=== PATIENT | male | born 2000 | race Caucasian/White ===

== ENCOUNTER → 2021-08-28 16:09 | Outpatient (CLI) | payer OTHER, SELFPAY | PROVIDERS: Visit Provider Nurse Practitioner | DX: Z20.822 Contact with and (suspected) exposure to COVID-19 (principal) | CPT/HCPCS: C9803; U0003; U0005 ==

== ENCOUNTER → 2021-10-04 16:44 | Outpatient (CLI) | payer OTHER, SELFPAY | PROVIDERS: Visit Provider Nurse Practitioner | DX: Z20.822 Contact with and (suspected) exposure to COVID-19 (principal) | CPT/HCPCS: C9803; U0003; U0005 ==

== ENCOUNTER 2021-11-01 14:17 | Emergency (ER) | payer SELFPAY ==
--- NOTE | 2021-11-01 14:47 | XR_ITS ---
PROCEDURE INFORMATION: Exam: XR Chest Exam date and time: 11/01/2021 2:47 PM Age: 21 years old Clinical indication: Cough; Additional info: Cough, congestion TECHNIQUE: Imaging protocol: XR of the chest. Views: 2 views. COMPARISON: No relevant prior studies available. FINDINGS: Lungs: Central opacities with peribronchial cuffing, seen to advantage on the lateral chest radiograph suggest viral process versus reactive airways without convincing consolidation. Pleural spaces: Unremarkable. No pleural effusion. No pneumothorax. Heart/Mediastinum: Unremarkable. No cardiomegaly. Bones/joints: Unremarkable. IMPRESSION: Central opacities with peribronchial cuffing, seen to advantage on the lateral chest radiograph suggest viral process versus reactive airways without convincing consolidation.
[2021-11-01 15:39] VITALS: BP 153/93; PULSE 104; RESP 20; TEMP 37.3; O2SAT 98; BMI 27.6
[2021-11-01 15:50] LABS: Adenovirus,PCR Not Detected (NotDetected); Bordetella Pertussis Not Detected (NotDetected); Chlamydophila Pneumoniae, PCR Not Detected (NotDetected); Coronavirus 19, PCR Not Detected (NotDetected); Coronavirus 229E Not Detected (NotDetected); Coronavirus NL63 Not Detected (NotDetected); Coronavirus OC43 Not Detected (NotDetected); Coronovirus HKU1,PCR Not Detected (NotDetected); Influenza A, PCR Not Detected (NotDetected); Influenza AH1, 2009 Not Detected (NotDetected); Influenza AH1, PCR Not Detected (NotDetected); Influenza AH3,PCR Not Detected (NotDetected); Influenza B, PCR Not Detected (NotDetected); Mycoplasma Pneumoniae, PCR Not Detected (NotDetected); Parainfluenza 1, PCR Not Detected (NotDetected); Parainfluenza 2, PCR Not Detected (NotDetected); Parainfluenza 3, PCR Not Detected (NotDetected); Parainfluenza 4, PCR Not Detected (NotDetected); Respiratory Syncytial Virus Not Detected (NotDetected); Rhinovirus/Enterovirus Not Detected (NotDetected)
--- NOTE | 2021-11-01 16:04 | HMH.EDUTC ---
[facility] [place] Clinical Impression: Acute bronchitis Qualifiers: Bronchitis organism: unspecified organism Qualified Code(s): J20.9 - Acute bronchitis, unspecified Disposition: Home, Self-Care Condition on Discharge: Good Instructions: DI for Acute Bronchitis Additional Instructions: Drink plenty of fluids. Take tylenol or ibuprofen for pain or fever. Take one of these regularly for the next few days to help control your fever and symptoms. Take the medications as directed. Don't start the oral steroids (prednisone) until tomorrow, since you had the steroid shot here today. Follow up with your regular doctor. GO TO THE ER FOR ANY WORSENING SYMPTOMS The cough medication (promethazine dm) will make you drowsy, so don't drive or operate heavy machinery after taking it. Prescriptions: Promethazine/Dextromethorphan [Promethazine-Dm Syrup] 5 ml PO Q6HP PRN #240 ml PRN Reason: Cough Transmission Status: Received by [email or web address] Ondansetron [Zofran 4mg ODT] 4 mg PO Q8HP PRN #20 tab PRN Reason: Nausea Transmission Status: Received by [email or web address] Amoxicillin/Potassium Clav [Augmentin 875-125 Tablet] 1 tab PO Q12H 10 Days #20 tab Transmission Status: Received by [email or web address] predniSONE [Prednisone 20mg Tab] 20 mg PO BID 4 Days #8 tab Transmission Status: Received by [email or web address] Referrals: Provider,Referral, MD [Primary Care Provider] - Forms: Work/School Release Time of Disposition: 17:07 Medical Decision Making - Medical Records Medical records reviewed: No: I reviewed the patient's medical records. - Sawyer Inquiry Pt receiving controlled substance: No Vital Signs: 11/01/21 15:39 11/01/21 17:27 Temperature 99.1 F 99.1 F Temperature Source Oral Pulse Rate 104 H Pulse Rate [Left] 104 H Respiratory Rate 20 20 Blood Pressure 153/93 H Blood Pressure [Right Arm] 153/93 H Blood Pressure Mean [Right Arm] 113 02 Sat by Pulse Oximetry 98 - Lab Data Lab results reviewed: Yes: I reviewed the patient's lab results. Lab Results 11/01/21 15:36: SARS-CoV-2 (PCR) Not detected, Influenza A Untype (PCR) Not detected, Influenza Type B (PCR) Not detected 11/01/21 15:36: Chlamy pneumoniae PCR Not detected, Adenovirus (PCR) Not detected, B. pertussis DNA (PCR) Not detected, Coronavirus OC43 (PCR) Not detected, Coronavirus HKU1 (PCR) Not detected, Coronavirus 229E (PCR) Not detected, Coronavirus NL63 (PCR) Not detected, Human Metapneumovir PCR Detected A, Influenza A (H1) PCR Not detected, Influ A (H1N1/09) PCR Not detected, Influenza A (H3) PCR Not detected, Influenza Type A (PCR) Not detected, Influenza Type B (PCR) Not detected, M. pneumoniae (PCR) Not detected, Parainfluenza 1 (PCR) Not detected, Parainfluenza 2 (PCR) Not detected, Parainfluenza 3 (PCR) Not detected, Parainfluenza 4 (PCR) Not detected, RSV (PCR) Not detected, Entero/Rhino (PCR) Not detected 11/01/21 15:40: Strep Scn Rapid Clinic Negative Orders (Tests/Meds): ED MEDICATIONS Discontinued Medications Generic Name Dose Route Start Last Admin Trade Name Freq PRN Reason Stop Dose Admin Ceftriaxone Sodium 1 gm 11/01/21 16:48 11/01/21 16:58 Ceftriaxone 1gm Vial IM 11/01/21 16:49 1 gm ONCE ONE Administration Lidocaine HCl 0 ml 11/01/21 16:48 11/01/21 16:59 Lidocaine 1% 5ml Pf Vial IM 11/01/21 16:49 2 ml ONCE ONE Administration Methylprednisolone Sodium Succinate 125 mg 11/01/21 16:48 11/01/21 16:59 Methylprednisolone Sod Succ 125mg Vial IM 11/01/21 16:49 125 mg ONCE ONE Administration ORDERS Category Date Time Status Strep Screen Confirmation Stat Micro 11/01/21 15:40 [place] [facility] [place] - General Stated complaint: lungs hurt when coughs Time Seen by Provider: 11/01/21 16:04 Mode of Arrival: Ambulatory Source of Information: Patient Limitations: No Limitations HEENT Symptoms (Recalled from RN notes): Yes (nasal drainage) Resp
[2021-11-01 17:27] VITALS: BP 153/93; PULSE 104; RESP 20; TEMP 37.3
[2021-11-01 18:08] LABS: Human Metapneumovirus Detected (NotDetected)
[2021-11-01 19:04] LABS: UTC Strep Screen (Rapid) Negative (Negative)
== END 2021-11-01 17:28 | disposition home or self-care (01) ==
PROVIDERS: Emergency Provider Nurse Practitioner Family
DX: J20.9 Acute bronchitis, unspecified (principal)
CPT/HCPCS: 71046; 87486; 87581; 87632; 87798; 87880; 99202; C9803; G0463; U0003; U0005

== ENCOUNTER → 2022-01-08 15:19 | Outpatient (CLI) | payer OTHER, SELFPAY | PROVIDERS: Visit Provider Nurse Practitioner | DX: Z20.822 Contact with and (suspected) exposure to COVID-19 (principal) | CPT/HCPCS: C9803; U0003; U0005 ==

== ENCOUNTER 2022-05-21 12:40 | Emergency (ER) | payer SELFPAY ==
[2022-05-21 12:59] VITALS: BP 143/76; PULSE 108; RESP 17; TEMP 38.6; O2SAT 97; BMI 33.0
--- NOTE | 2022-05-21 13:01 | HMH.EDUTC ---
[facility] [place] Clinical Impression: Viral syndrome, Exposure to COVID-19 virus Disposition: Home, Self-Care Condition on Discharge: Good Instructions: DI for Viral Syndrome, DI for COVID-19 (Suspected or Confirmed ), Preventing the Spread of Coronavirus Discharge Instructions Additional Instructions: Drink plenty of fluids. Take tylenol or ibuprofen for pain or fever. Take the medications as directed. Follow up with your regular doctor. GO TO THE ER FOR ANY WORSENING SYMPTOMS Quarantine until you know the results of your covid-19 test. Notify your school or workplace of your results and follow their instructions regarding return to work/school. Prescriptions: Brompheniramine/Pseudoephed/Dm [Bromfed Dm Cough Syrup] 5 ml PO Q6HP PRN #240 ml PRN Reason: Cough Transmission Status: Received by [facility] Ondansetron [Zofran 4mg ODT] 4 mg PO Q8HP PRN #20 tab PRN Reason: Nausea Transmission Status: Received by [facility] Referrals: Provider,Referral, [Primary Care Provider] - Forms: Work/School Release Time of Disposition: 13:14 Medical Decision Making - Medical Records Medical records reviewed: No: I reviewed the patient's medical records. - Sawyre Inquiry Pt receiving controlled substance: No Vital Signs: 05/21/22 12:59 05/21/22 13:16 Temperature 101.4 F H 101.4 F H Temperature Source Oral Pulse Rate 108 H Pulse Rate [Left Radial] 108 H Respiratory Rate 17 17 Blood Pressure 143/76 H Blood Pressure [Right Arm] 143/76 H Blood Pressure Mean [Right Arm] 98 02 Sat by Pulse Oximetry 97 Orders (Tests/Meds): ORDERS Category Date Time Status Covid-19 Nasal PCR ([facility]) Routine Lab 05/21/22 12:53 [place] [facility] [place] - General Stated complaint: wants covid test Time Seen by Provider: 05/21/22 13:01 Description of Symptoms (Recalled from Triage Doc. by RN): patient comes in for a covid test. yesterday patient began experiencing fever, body aches, and headache HEENT Symptoms (Recalled from RN notes): Yes Resp Symptoms (Recalled from RN notes): No Skin Symptoms (Recalled from RN notes): No MS Symptoms (Recalled from RN notes): No Functional Status (Recalled from RN notes): wnl - History of Present Illness Provider Complaint: He states that for the past 2 days he has had body aches, chills, fever up to 101.5, a nonproductive cough and he has felt very bad. He has worked with 2 people that came down with covid-19 over the past week. He denies any shortness of breath. - Related Data Previous Rx's Medication Instructions Recorded Amoxicillin/Potassium Clav 1 tab PO Q12H 10 Days #20 tab 11/01/21 [Augmentin 875-125 Tablet] Ondansetron [Zofran 4mg ODT] 4 mg PO Q8HP PRN #20 tab 11/01/21 Promethazine/Dextromethorphan 5 ml PO Q6HP PRN #240 ml 11/01/21 [Promethazine-Dm Syrup] predniSONE [Prednisone 20mg 20 mg PO BID 4 Days #8 tab 11/01/21 Tab] Brompheniramine/Pseudoephed/Dm 5 ml PO Q6HP PRN #240 ml 05/21/22 [Bromfed Dm Cough Syrup] Ondansetron [Zofran 4mg ODT] 4 mg PO Q8HP PRN #20 tab 05/21/22 Allergies Allergy/AdvReac Type Severity Reaction Status Date / Time No Known Allergies Allergy Verified 05/21/22 13:01 - Worker's Comp Is this a Worker's Comp case?: No [facility] History - Hepatitis A Screen Attestation statement:: This patient has been screened for Hepatitis A risk factors. I have reviewed the patient's past medical history: Yes ROS Obtained: Yes All systems reviewed & no additional complaints - Constitutional Constitutional: Reports as per HPI - Eyes Eyes: Denies eye discharge - ENT Ears, Nose, Mouth, and Throat: Reports as per HPI - Cardiovascular Cardiovascular: Denies chest pain - Respiratory Respiratory: Reports chest congestion, Reports cough Physical Exam - General General appearance: alert, in no apparent distress - Head Head exam: atraumatic, normocephalic, normal inspe
[2022-05-21 13:16] VITALS: BP 143/76; PULSE 108; RESP 17; TEMP 38.6
== END 2022-05-21 13:19 | disposition home or self-care (01) ==
PROVIDERS: Emergency Provider Nurse Practitioner Family
DX: U07.1 COVID-19 (principal)
CPT/HCPCS: 99212; C9803; G0463; U0003; U0005

== ENCOUNTER 2022-09-27 14:52 | Emergency (ER) | payer SELFPAY ==
[2022-09-27 15:15] VITALS: BP 149/98; PULSE 78; RESP 20; TEMP 36.8; O2SAT 98; BMI 36.2
--- NOTE | 2022-09-27 15:34 | EXP.UTC ---
Discharge Plan Disposition Patient Disposition: Home, Self-Care Condition: Good Prescriptions Prescriptions: New amoxicillin-pot clavulanate 875-125 mg Tablet 1 tab PO Q12H Qty: 14 0RF fluticasone propionate [Flonase Allergy Relief] 50 mcg/actuation spray,suspension 1 spray intranasal DAILY Qty: 16 0RF Rx Instructions: administer into each nostril Referrals Follow up/Referrals: Provider,Referral, MD [Primary Care Provider] - See instructions Activity Restrictions/Add. Instructions Additional Instructions/Restrictions: Take medication as prescribed Make sure to call the Physician offices on the list and make appointment Return if needed Straight to ER if any life threatening symptoms Clinical Impressions Clinical Impression: Sinusitis Stand Alone Forms Stand Alone Forms: Work/School Release Instructions Patient Instructions: DI for Sinusitis, Sinusitis Discharge ED Provider: Rachel Gu [facility] [place] HPI General Stated complaint: sinus pressure, fatigue Time Seen by Provider: 09/27/22 15:34 History of Present Illness Provider Complaint: Patient states that all week he has been having sinus pain and pressure and pressure like feeling behind his eyes, headache and fatigue State that he hasnt had fever or anything that he is aware of States that also he doesnt have a family doctor an not sure who to go too to get his labs and cholesterol and stuff checked because it hasnt been checked in awhile Related Data Previous Rx's Medication Instructions Recorded amoxicillin 875 mg-potassium 1 tab PO Q12H #14 tabs 09/27/22 clavulanate 125 mg tablet fluticasone propionate 50 1 spray intranasal DAILY #16 grams 09/27/22 mcg/actuation nasal spray,suspension (Flonase Allergy Relief) Allergies Allergy/AdvReac Type Severity Reaction Status Date / Time No Known Allergies Allergy Verified 05/21/22 13:01 [facility] Medical History (Updated 09/27/22 @ 15:44 by Rachel Gu APRN) Anxiety Social History Smoking Status: Unknown if ever smoked alcohol intake: never current occupational status: other Travel in the last 8 weeks: None ROS Obtained: Yes All systems reviewed & no additional complaints except as documented and Yes Systems reviewed as appropriate & no additional complaints except as documented Constitutional Constitutional: Reports system reviewed and no additional complaints, except as documented, Reports as per HPI, Reports fatigue, Denies fever(s) and Reports headache(s) ENT Ears, Nose, Mouth, and Throat: Reports system reviewed and no additional complaints, except as documented, Reports as per HPI, Reports headache(s), Reports sinus pain and Reports sinus pressure Cardiovascular Cardiovascular: Reports system reviewed and no additional complaints, except as documented and Reports as per HPI Respiratory Respiratory: Reports system reviewed and no additional complaints, except as documented and Reports as per HPI Gastrointestinal Gastrointestingal: Reports system reviewed and no additional complaints, except as documented and as per HPI Neurologic Neurologic: Reports headache(s) Endocrine Endocrine: Reports fatigue Physical Exam General General appearance: alert and in no apparent distress Expanded ENT Exam Nose exam: Present sinus tenderness Throat exam: Present other (Pharyngeal erythema noted with PND) Respiratory Respiratory exam: Present normal lung sounds bilaterally; Absent respiratory distress or wheezes Cardiovascular Cardiovascular exam: Present regular rate, normal rhythm and normal heart sounds Neurological Exam Neurological exam: Present alert, oriented X3 and normal gait Medical Decision Making Sawyer Inquiry Pt receiving controlled substance: No Sawyer was queried for this patient: No Medical Decision Narrative: Discussed with patient about establishing a PCP to get routine labs checked and he was given list of accepting physicians and recomm
[2022-09-27 15:46] VITALS: BP 149/98; PULSE 78; RESP 20; TEMP 36.8; O2SAT 98
== END 2022-09-27 15:50 | disposition home or self-care (01) ==
PROVIDERS: Emergency Provider Nurse Practitioner
DX: J32.9 Chronic sinusitis, unspecified (principal); R51.9 Headache, unspecified; R53.82 Chronic fatigue, unspecified; Z79.51 Long term (current) use of inhaled steroids
CPT/HCPCS: 99213; G0463

== ENCOUNTER 2023-10-05 18:11 | Emergency (ER) | payer BC, SELFPAY ==
[2023-10-05 18:44] VITALS: BP 141/92; PULSE 80; RESP 18; TEMP 36.4; O2SAT 98; BMI 32.3
[2023-10-05 19:00] VITALS: BP 127/84; PULSE 82; O2SAT 97
--- NOTE | 2023-10-05 19:03 | XR_ITS ---
PROCEDURE INFORMATION: Exam: XR Chest Exam date and time: 10/05/2023 7:43 PM Age: 23 years old Clinical indication: Wheezing; Additional info: Wheezing bl, productive cough TECHNIQUE: Imaging protocol: Radiologic exam of the chest. Views: 1 view. COMPARISON: CR XR CHEST 2V 11/01/2021 2:47 PM FINDINGS: Lungs: Unremarkable. No consolidation. Pleural spaces: Unremarkable. No pleural effusion. No pneumothorax. Heart/Mediastinum: Unremarkable. No cardiomegaly. Bones/joints: Unremarkable. IMPRESSION: Stable chest x-ray with no acute disease.
--- NOTE | 2023-10-05 19:08 | HMH.EDGENADL ---
Discharge Plan Disposition Patient Disposition: Home, Self-Care Prescriptions Prescriptions: New prednisone 20 mg tablet 40 mg PO BID 5 Days Qty: 20 0RF No Action amoxicillin-pot clavulanate 875-125 mg Tablet 1 tab PO Q12H Qty: 14 0RF fluticasone propionate [Flonase Allergy Relief] 50 mcg/actuation spray,suspension 1 spray intranasal DAILY Qty: 16 0RF Rx Instructions: administer into each nostril Referrals Follow up/Referrals: Provider,Referral, MD [Primary Care Provider] - See instructions Activity Restrictions/Add. Instructions Additional Instructions/Restrictions: Call your family doctor to establish care for this visit to the emergency department and schedule follow-up within 48 hours to ensure improvement. If you have any worsening of your condition or any other concerning signs or symptoms, return to the emergency department or your primary care doctor for further evaluation. Prednisone daily for 5 days. Be sure to take daily cetirizine or Claritin for symptoms as well. Clinical Impressions Clinical Impression: Acute bronchitis Qualifiers: Bronchitis organism: unspecified organism Qualified Code(s): J20.9 - Acute bronchitis, unspecified Discharge ED Provider: Fabrice Carrillo General Adult HPI General Chief complaint: Upper Respiratory Infection Stated complaint: chest congestion, EDOUARD, lightheaded Time Seen by Provider: 10/05/23 18:41 Mode of Arrival: Ambulatory Source of Information: Patient Limitations: No Limitations Description of Symptoms (Recalled from ER Triage Doc. by RN): PT REPORTS PAIN IN ESOPHAGUS AFTER EATING. REPORTS COUGH FOR A FEW WEEKS PT REPORTS ANXIETY History of Present Illness HPI narrative: Otherwise healthy 23-year-old male presenting with multiple complaints. Patient states that he started having a cough a couple of weeks prior to this. Was diagnosed with bronchitis and got a couple shots. Patient has had persistent cough since then. Cough is nonproductive, not made better or worse by anything. No chest pain, but has had associated pressure in my throat. Denies pain with range of motion of neck, difficulty or pain with swallowing, voice changes, trismus, or any other concerns. Related Data Previous Rx's Medication Instructions Recorded amoxicillin 875 mg-potassium 1 tab PO Q12H #14 tabs 09/27/22 clavulanate 125 mg tablet fluticasone propionate 50 1 spray intranasal DAILY #16 grams 09/27/22 mcg/actuation nasal spray,suspension (Flonase Allergy Relief) prednisone 20 mg tablet 40 mg PO BID 5 days #20 tabs 10/05/23 Allergies Allergy/AdvReac Type Severity Reaction Status Date / Time No Known Allergies Allergy Verified 05/21/22 13:01 [facility] Disclaimer: The information contained in this section may have been updated after the patient was seen, as this information can be updated by other users. Medical History (Updated 10/05/23 @ 20:53 by Fabrice Carrillo MD) Anxiety Social History (Updated 09/27/22 @ 15:44 by Rachel Gu APRN) Smoking Status: Former smoker alcohol intake: never current occupational status: other Travel in the last 8 weeks: None ROS Obtained: Yes All systems reviewed & no additional complaints except as documented Physical Exam General General appearance: alert and in no apparent distress Head Head exam: atraumatic and normocephalic Eye Eye exam: Present normal appearance, PERRL and EOMI ENT ENT exam: Present mucous membranes moist Neck Neck exam: Present normal inspection, full ROM and trachea midline Respiratory Respiratory exam: Present wheezes (Bilateral lower field wheezes); Absent respiratory distress, stridor, accessory muscle use or prolonged expiratory phase Cardiovascular Cardiovascular exam: Present regular rate and normal rhythm Abdominal Exam Abdominal exam: Present soft; Absent distention, tenderness, guarding, rebound, rigidity or normal bowel sounds Extremities Exam Extremit
[2023-10-05 19:30] VITALS: BP 120/72; PULSE 65; O2SAT 100
[2023-10-05 20:00] VITALS: BP 117/76; PULSE 75; O2SAT 98
[2023-10-05 20:56] VITALS: BP 123/75; PULSE 73; RESP 16; TEMP 36.8; O2SAT 98
== END 2023-10-05 21:01 | disposition home or self-care (01) ==
LOC: UTC 18:16 → ER 18:17
PROVIDERS: Emergency Provider Emergency Medicine
DX: J20.9 Acute bronchitis, unspecified (principal); R05.8 Other specified cough; F41.9 Anxiety disorder, unspecified; Z87.891 Personal history of nicotine dependence
CPT/HCPCS: 71045; 99283

== ENCOUNTER 2023-12-10 14:29 | Emergency (ER) | payer SELFPAY ==
[2023-12-10 15:20] VITALS: BP 143/92; PULSE 85; RESP 20; TEMP 36.8; O2SAT 100; BMI 35.7
--- NOTE | 2023-12-10 15:38 | EXP.UTC ---
Discharge Plan Disposition Patient Disposition: Home, Self-Care Condition: Good Prescriptions Prescriptions: No Action amlodipine 5 mg tablet 5 mg PO DAILY Patient Comments: TAKE 1 TABLET BY MOUTH EVERY DAY buspirone 10 mg tablet 10 mg PO DAILY Patient Comments: TAKE 0.5-1 TABLET BY MOUTH THREE TIMES A DAY NEEDED fluoxetine 20 mg capsule 20 mg PO DAILY Patient Comments: TAKE 1 CAPSULE BY MOUTH EVERY DAY Referrals Follow up/Referrals: Provider,Referral, [Primary Care Provider] - See instructions Homa Everett APRN [Nurse Practitioner] - 12/11/23 1:30 pm Activity Restrictions/Add. Instructions Additional Instructions/Restrictions: Follow up with Homa Everett tomorrow as scheduled at 130pm Furhter care per Homa Everett Straight to ER if any life threatening symptoms unable to swallow, swelling in throat ETC Clinical Impressions Clinical Impression: Irritated throat Stand Alone Forms Stand Alone Forms: Work/School Release Discharge ED Provider: Rachel Gu [facility] [place] General Stated complaint: throat closing up and luz soa Mode of Arrival: Ambulatory Source of Information: Patient Limitations: No Limitations Time Seen by Provider: 12/10/23 15:38 Description of Symptoms (Recalled from Triage Doc. by RN): PATIENT C/O SOA, NUMBNESS IN HANDS AND FEET, AND PRESSURE TO NECK/THROAT AREA X 1 WEEK HEENT Symptoms (Recalled from RN notes): Yes Resp Symptoms (Recalled from RN notes): Yes Skin Symptoms (Recalled from RN notes): No MS Symptoms (Recalled from RN notes): No Functional Status (Recalled from RN notes): WNL History of Present Illness Provider Complaint: Patient states that he has been having some discomfort in his throat on and off for awhile States it did this before and stopped but for the last week he has been having irritation in his throat and feels like it is swollen and irritated and some pressure then will stop and go away States he was worried that he may have strep throat or bronchitis States that he has anxiety and it made him anxious last night and he was breathing hard feeling a little SOA and his hands and feet felt tingly but he isnt having that now States that he isnt having any trouble swallowing food or drinks but just wanted to come in and get it looked at Related Data Home Medications Medication Instructions Recorded Confirmed amlodipine 5 mg tablet 5 mg PO DAILY 12/10/23 12/10/23 buspirone 10 mg tablet 10 mg PO DAILY 12/10/23 12/10/23 fluoxetine 20 mg capsule 20 mg PO DAILY 12/10/23 12/10/23 Allergies Allergy/AdvReac Type Severity Reaction Status Date / Time No Known Allergies Allergy Verified 05/21/22 13:01 Worker's Comp Is this a Worker's Comp case?: No [facility] Disclaimer: The information contained in this section may have been updated after the patient was seen, as this information can be updated by other users. Medical History (Updated 12/10/23 @ 16:06 by Rachel Gu APRN) Anxiety Depression Hypertension Social History (Updated 09/27/22 @ 15:44 by Rachel Gu APRN) Smoking Status: Former smoker alcohol intake: never current occupational status: other Travel in the last 8 weeks: None ROS Obtained: Yes All systems reviewed & no additional complaints except as documented and Yes Systems reviewed as appropriate & no additional complaints except as documented Constitutional Constitutional: Reports system reviewed and no additional complaints, except as documented and Reports as per HPI ENT Ears, Nose, Mouth, and Throat: Reports system reviewed and no additional complaints, except as documented, Reports as per HPI, Reports sore throat and Reports other Comments: reports throat feels swollen Cardiovascular Cardiovascular: Reports system reviewed and no additional complaints, except as documented and Reports as per HPI Respiratory Respiratory: Reports system reviewed and no additional complaints, except as documented, Reports as per HPI and Reports cough (at times and sometimes will cough up mucous) Gastrointestinal Gastrointestingal: Reports system reviewed and no additional complaints, except as documented and as per HPI Musculoskeletal Musculoskeletal: Reports system reviewed and no additional complaints, except as documented and Reports as per HPI Comments: was anxious last night felt a little SOA and hands and feet felt tingly but not now Neurologic Neurologic: Reports system reviewed and no additional complaints, except as documented and Reports as per HPI Physical Exam General General appearance: alert and in no apparent distress ENT ENT exam: Present mucous membranes moist Expanded ENT Exam Throat exam: Present tonsillar erythema (with PND) Neck Neck exam: Present normal inspection, full ROM and trachea midline; Absent tenderness Respiratory Respiratory exam: Present normal lung sounds bilaterally; Absent respiratory distress or wheezes Cardiovascular Cardiovascular exam: Present regular rate, normal rhythm and normal heart sounds Abdominal Exam Abdominal exam: Present soft and normal bowel sounds; Absent distention or tenderness Neurological Exam Neurological exam: Present alert, oriented X3 and normal gait Medical Decision Making Sawyer Inquiry Pt receiving controlled substance: No Sawyer was queried for this patient: No Vital Signs: 12/10/23 15:20 Temperature 98.2 F Temperature Source Oral Pulse Rate [Left Brachial] 85 Respiratory Rate 20 Blood Pressure [Left Arm] 143/92 H Blood Pressure Mean [Left Arm] 109 Blood Pressure Source [Left Arm] Automatic Cuff Blood Pressure Position [Left Arm] Sitting 02 Sat by Pulse Oximetry 100 Oxygen Delivery Method Room Air Lab Data Lab results reviewed: Yes I reviewed the patient's lab results. Medical Decision Narrative: Discussed xray of soft tissues of neck and patient declined Patient worried about his thyroid after reading about it Discussed with patient about follow EMELY with PCp and states that he didnt have one Patient got appointment with Bhavani Everett tomorrow at 130pm Again discussed with patient about transfer to the ED or xray of soft tissues and he declined wanted to wait to his appointment tomorrow and have lab work and stuff done States that he is swallowing fine and not having any pain
[2023-12-10 15:52] LABS: UTC Strep Screen (Rapid) Negative (Negative)
[2023-12-10 16:01] VITALS: BP 143/92; PULSE 85; RESP 20; TEMP 36.8; O2SAT 100
== END 2023-12-10 16:13 | disposition home or self-care (01) ==
PROVIDERS: Emergency Provider Nurse Practitioner
DX: R07.0 Pain in throat (principal); R06.02 Shortness of breath; R20.0 Anesthesia of skin; F41.9 Anxiety disorder, unspecified; F32.A Depression, unspecified; I10 Essential (primary) hypertension; Z87.891 Personal history of nicotine dependence
CPT/HCPCS: 87880; 99212; 99213; G0463

== ENCOUNTER 2023-12-11 17:06 | Outpatient (CLI) | payer SELFPAY ==
[2023-12-11 17:23] LABS: Basophils # 0.1 K/mm3 (0-0.2); Basophils % 0.5 % (0.1-2.0); Eosinophils # 0.3 K/mm3 (0.0-0.4); Eosinophils % 2.7 % (0.1-12.0); Hematocrit 44.2 % (42.0-52.0); Hemoglobin 15.4 g/dL (14.1-18.0); Lymphocytes # 2.7 K/mm3 (0.7-4.5); Lymphocytes % 26.9 % (10-50); Mean Corpuscular HGB Conc 34.7 g/dL (31.8-35.4); Mean Corpuscular Hemoglobin 30.3 pg (27.0-31.2); Mean Corpuscular Volume 87.3 fl (80-94); Mean Platelet Volume 7.8 fl (7.4-10.4); Monocytes # 0.6 K/mm3 (0.1-1.0); Monocytes % 5.4 % (1.7-9.3); Neutrophils # 6.5 K/mm3 (1.8-7.8); Neutrophils % 64.5 % (37.0-80.0); Platelet Count 311 K/mm3 (142-424); Red Blood Count 5.07 M/mm3 (4.60-6.20); Red Cell Distribution Width 12.5 % (11.5-17.5)
[2023-12-11 17:49] LABS: Chloride 100 mmol/L (98-107); Potassium 4.4 mmoL/L (3.5-5.1); Sodium 141 mmol/L (136-145)
[2023-12-11 17:51] LABS: Alanine Aminotransferase 42 U/L (12-78); Aspartate Amino Transferase 34 U/L (17-59); Blood Urea Nitrogen 13 mg/dl (9-20); Estimated Glomerular Filt Rate 120 ml/min (>60); GFR (African American) 145 ML/MIN (>60)
[2023-12-11 17:52] LABS: Albumin Level 4.9 g/dl (3.5-5.0); Albumin/Globulin Ratio 1.7 (1.1-1.8); Alkaline Phosphatase 63 U/L (38-126); Anion Gap 14.4 mEq/L (5-15); Bilirubin,Total 0.4 mg/dl (0.2-1.3); Calcium 9.4 mg/dl (8.4-10.2); Carbon Dioxide 31 mmol/L (22.0-30.0); Globulin 2.9 g/dL (1.3-3.2); Glucose 103 mg/dl (74-100); Total Protein,Serum 7.8 g/dl (6.3-8.2)
[2023-12-11 18:14] LABS: T4 (Thyroxine) 8.2 ug/dl (5.53-11.0)
[2023-12-11 18:26] LABS: Thyroid Stimulating Hormone 1.04 uIU/mL (0.465-4.68)
[2023-12-11 18:30] LABS: Ferritin 249 ng/ml (17.9-464)
[2023-12-11 21:36] LABS: Vitamin B12 556 pg/mL (239-931)
[2023-12-13 09:06] LABS: Thyroid Peroxidase Antibodies <9 IU/mL (0-34); Triiodothyronine (T3) Free 4.1 pg/mL (2.0-4.4)
[2023-12-14 14:10] LABS: Thyroglobulin Level <1.0 IU/mL (0.0-0.9)
== END 2023-12-11 23:59 ==
PROVIDERS: PCP Nurse Practitioner Family; Visit Provider Nurse Practitioner Family
DX: R20.0 Anesthesia of skin (principal); R20.2 Paresthesia of skin; E01.0 Iodine-deficiency related diffuse (endemic) goiter; R22.1 Localized swelling, mass and lump, neck; R53.83 Other fatigue
CPT/HCPCS: 80053; 82607; 82728; 84436; 84443; 84481; 85025; 86376; 86800

== ENCOUNTER 2024-07-27 13:46 | Emergency (ER) | payer SELFPAY ==
[2024-07-27 13:47] VITALS: BP 150/107; PULSE 97; RESP 20; TEMP 37.1; O2SAT 98; BMI 34.4
[2024-07-27 14:09] LABS: Basophils # 0.1 K/mm3 (0-0.2); Basophils % 0.5 % (0.1-2.0); Eosinophils # 0.2 K/mm3 (0.0-0.4); Eosinophils % 2.1 % (0.1-12.0); Hematocrit 41.9 % (42.0-52.0); Hemoglobin 14.3 g/dL (14.1-18.0); Lymphocytes # 1.8 K/mm3 (0.7-4.5); Lymphocytes % 18.6 % (10-50); Mean Corpuscular HGB Conc 34.3 g/dL (31.8-35.4); Mean Corpuscular Hemoglobin 29.7 pg (27.0-31.2); Mean Corpuscular Volume 86.8 fl (80-94); Mean Platelet Volume 7.7 fl (7.4-10.4); Monocytes # 0.8 K/mm3 (0.1-1.0); Monocytes % 8.1 % (1.7-9.3); Neutrophils # 6.8 K/mm3 (1.8-7.8); Neutrophils % 70.7 % (37.0-80.0); Platelet Count 293 K/mm3 (142-424); Red Blood Count 4.82 M/mm3 (4.60-6.20); Red Cell Distribution Width 12.7 % (11.5-17.5); White Blood Count 9.6 K/mm3 (4.8-10.8)
[2024-07-27 14:19] LABS: Alanine Aminotransferase 46 U/L (12-78); Albumin Level 4.1 g/dl (3.5-5.0); Albumin/Globulin Ratio 1.2 (1.1-1.8); Alkaline Phosphatase 56 U/L (38-126); Anion Gap 9.8 mEq/L (5-15); Aspartate Amino Transferase 41 U/L (17-59); Bilirubin,Total 0.6 mg/dl (0.2-1.3); Blood Urea Nitrogen 13 mg/dl (9-20); Calcium 9.2 mg/dl (8.4-10.2); Carbon Dioxide 27 mmol/L (22.0-30.0); Chloride 106 mmol/L (98-107); Creatinine Clearance Estimated 251 mL/min (50-200); Estimated Glomerular Filt Rate 139 ml/min (>60); GFR (African American) 168 ML/MIN (>60); Globulin 3.4 g/dL (1.3-3.2); Glucose 94 mg/dl (74-100); Lipase 55 U/L (23-300); Potassium 3.8 mmoL/L (3.5-5.1); Sodium 139 mmol/L (136-145); Total Protein,Serum 7.5 g/dl (6.3-8.2)
[2024-07-27 14:20] LABS: Lactic Acid 0.6 mmol/L (0.7-2.1)
[2024-07-27 14:30] VITALS: BP 125/83; PULSE 84; O2SAT 99
--- NOTE | 2024-07-27 14:44 | HMH.EDGENADL ---
Discharge Plan Disposition Patient Disposition: Home, Self-Care Prescriptions Prescriptions: No Action amlodipine 5 mg tablet 5 mg PO DAILY Patient Comments: TAKE 1 TABLET BY MOUTH EVERY DAY buspirone 10 mg tablet 10 mg PO DAILY Patient Comments: TAKE 0.5-1 TABLET BY MOUTH THREE TIMES A DAY NEEDED fluoxetine 20 mg capsule 20 mg PO DAILY Patient Comments: TAKE 1 CAPSULE BY MOUTH EVERY DAY Referrals Follow up/Referrals: Provider,Referral, MD [Primary Care Provider] - See instructions Activity Restrictions/Add. Instructions Additional Instructions/Restrictions: Call your family doctor to establish care for this visit to the emergency department and schedule follow-up within 48 hours to ensure improvement. If you have any worsening of your condition or any other concerning signs or symptoms, return to the emergency department or your primary care doctor for further evaluation. Take Tylenol 1000 mg every 6 hours (4 times daily) and ibuprofen 400 mg every 6 hours (4 times daily) as needed with food and water to prevent GI upset and kidney damage. I will contact you if diarrheal illness needs treated with antibiotics. Clinical Impressions Clinical Impression: Diarrhea, Campylobacter diarrhea, Enteropathogenic Escherichia coli infection Stand Alone Forms Stand Alone Forms: Work/School Release Instructions Patient Instructions: DI for Diarrhea and Traveler's Diarrhea -- Adult, DI for Diarrhea and Traveler's Diarrhea -- Child, DI for Nausea -- Adult, DI for Nausea -- Child Print Language Print Language: [place] Discharge ED Provider: Fabrice Carrillo General Adult HPI <Zia Marie MD - Last Filed: 07/27/24 15:09> General Chief complaint: Nausea/Vomiting/Diarrhea Stated complaint: cramps, blood in stool, headache, dizzy Time Seen by Provider: 07/27/24 13:52 Mode of Arrival: Ambulatory Source of Information: Patient Limitations: No Limitations Description of Symptoms (Recalled from ER Triage Doc. by RN): pt states he has had stomach bug oer the last 3-4 days with diarrhea, nausea, headaches and dizziness. then today about two hours ago patient noted bright red bloody stool an denies hx of hemorrhoids. pt states he currently in no pain but that its cramping in nature. pt states was seen here yesterday at ER for dehydration History of Present Illness HPI narrative: This is a 24-year-old male with a past medical history of hypertension who presents with bloody diarrhea. States that he has had watery diarrhea for the last 3 days with associated nausea. Denies vomiting. States that he had an episode of mixed hematochezia today. States that he has had a headache and also felt dizzy. Denies fever. Reports cramping abdominal pain. Denies any recent travel, antibiotic use, hospitalizations, or other exposures. Related Data Home Medications ?Medication ?Instructions ?Recorded ?Confirmed amlodipine 5 mg tablet 5 mg PO DAILY 12/10/23 12/11/23 buspirone 10 mg tablet 10 mg PO DAILY 12/10/23 12/11/23 fluoxetine 20 mg capsule 20 mg PO DAILY 12/10/23 12/11/23 Allergies Allergy/AdvReac Type Severity Reaction Status Date / Time No Known Allergies Allergy Verified 12/11/23 13:48 PFS <Zia Marie MD - Last Filed: 07/27/24 15:09> [facility] Disclaimer: The information contained in this section may have been updated after the patient was seen, as this information can be updated by other users. Medical History Anxiety Depression Hypertension Social History Smoking Status: Never smoker alcohol intake: never current occupational status: other Travel in the last 8 weeks: None <Zia Marie MD - Last Filed: 07/27/24 15:09> ROS Obtained: Yes All systems reviewed & no additional complaints except as documented Physical Exam <Zia Marie MD
[2024-07-27 15:11] VITALS: BP 111/83; PULSE 85; O2SAT 96
[2024-07-27 15:30] VITALS: BP 131/80; PULSE 83; O2SAT 98
[2024-07-27 16:04] LABS: Adenovirus F 40/41, stool Not Detected (NotDetected); Astrovirus Not Detected (NotDetected); Clostridium Difficile A/B, PCR Not Detected (NotDetected); Cryptosporidium Not Detected (NotDetected); Cyclospora Cayetanesis Not Detected (NotDetected); Entamoeba histolytica Not Detected (NotDetected); Enteroaggregative E coli Not Detected (NotDetected); Enterotoxigenic E coli Not Detected (NotDetected); Giardia lamblia Not Detected (NotDetected); Norovirus Not Detected (NotDetected); Plesimonas Shigalloides, PCR Not Detected (NotDetected); Rotavirus A Not Detected (NotDetected); Salmonella, PCR Not Detected (NotDetected); Sapovirus Not Detected (NotDetected); Shiga-like toxin E coli Not Detected (NotDetected); Shigella Enterovasive E coli Not Detected (NotDetected); Vibrio Cholerae Not Detected (NotDetected); Vibrio, PCR Not Detected (NotDetected); Yersinia Entercolitica, PCR Not Detected (NotDetected)
[2024-07-27 17:00] VITALS: BP 131/80; PULSE 83; RESP 19; TEMP 36.7
[2024-07-27 20:32] LABS: Campylobacter Detected (NotDetected); Enteropathogenic E coli Detected (NotDetected)
--- NOTE | 2024-07-28 07:08 | PC.NURSE ---
Dr Carrillo aware of positive labs results, states he will call pt to follow up, no additional treatment needed
== END 2024-07-27 17:01 | disposition home or self-care (01) ==
PROVIDERS: Student in an Organized Health Care Education/Training Program; Emergency Provider Emergency Medicine
DX: A04.5 Campylobacter enteritis (principal); A04.0 Enteropathogenic Escherichia coli infection; R19.7 Diarrhea, unspecified; R25.2 Cramp and spasm; R11.0 Nausea; R51.9 Headache, unspecified; R42 Dizziness and giddiness
CPT/HCPCS: 80053; 83605; 83690; 85025; 87177; 87507; 96361; 96374; 99284; J2405; J7120

== ENCOUNTER 2024-08-04 15:42 | Emergency (ER) | payer SELFPAY ==
[2024-08-04 15:50] VITALS: BP 137/83; PULSE 94; RESP 17; TEMP 37.6; O2SAT 98; BMI 33.7
--- NOTE | 2024-08-04 16:11 | ED_ITS ---
Discharge Plan Disposition Patient Disposition: Home, Self-Care Condition: Good Prescriptions Prescriptions: New azithromycin 500 mg tablet See Rx Instructions .ROUTE .COMPLEX Qty: 3 0RF Rx Instructions: For 500 mg dose pack: take 500 mg once daily for 3 days No Action amlodipine 5 mg tablet 5 mg PO DAILY Patient Comments: TAKE 1 TABLET BY MOUTH EVERY DAY fluoxetine 20 mg capsule 20 mg PO DAILY Patient Comments: TAKE 1 CAPSULE BY MOUTH EVERY DAY Referrals Follow up/Referrals: Provider,Referral, MD [Primary Care Provider] - See instructions Activity Restrictions/Add. Instructions Additional Instructions/Restrictions: Take medication as prescribed Make sure to drink plenty of fluids FOllow up with your Family Doctor if symptoms persist Return if needed Straight to ER if any life threatening symptoms Clinical Impressions Clinical Impression: Diarrhea Stand Alone Forms Stand Alone Forms: Work/School Release Instructions Patient Instructions: Azithromycin Print Language Print Language: Filipino Discharge ED Provider: Rachel Gu [facility] HPI General Stated complaint: diarrhea, stomach cramps-dx ecoli Mode of Arrival: Ambulatory Source of Information: Patient Limitations: No Limitations Time Seen by Provider: 08/04/24 16:12 Description of Symptoms (Recalled from Triage Doc. by RN): PATIENT C/O DIARRHEA. HE REPORTS HE WAS DIAGNOSED WITH E-COLI A LITTLE OVER A WEEK AGO BUT STATES IT STILL HASN'T CLEARED UP HEENT Symptoms (Recalled from RN notes): No Resp Symptoms (Recalled from RN notes): No Skin Symptoms (Recalled from RN notes): No MS Symptoms (Recalled from RN notes): No Functional Status (Recalled from RN notes): WNL History of Present Illness Provider Complaint: Patient states that he was seen in the ED last week for diarrhea and told he had Campylobactor and Ecoli in his diarrhea and it should pass on its on but may need to be on some antibiotics States it has been a week and he is still having watery diarrhea so he came in to see if he could get some antibiotics to try to clear it up Related Data Home Medications ?Medication ?Instructions ?Recorded ?Confirmed amlodipine 5 mg tablet 5 mg PO DAILY 12/10/23 08/04/24 fluoxetine 20 mg capsule 20 mg PO DAILY 12/10/23 08/04/24 Previous Rx's ?Medication ?Instructions ?Recorded azithromycin 500 mg tablet See Rx Instructions PO .COMPLEX #3 08/04/24 tabs Allergies Allergy/AdvReac Type Severity Reaction Status Date / Time No Known Allergies Allergy Verified 12/11/23 13:48 Worker's Comp Is this a Worker's Comp case?: No [facility] Disclaimer: The information contained in this section may have been updated after the patient was seen, as this information can be updated by other users. Medical History Anxiety Depression Hypertension Social History Smoking Status: Never smoker alcohol intake: never current occupational status: other Travel in the last 8 weeks: None ROS Obtained: Yes All systems reviewed & no additional complaints except as documented and Yes Systems reviewed as appropriate & no additional complaints except as documented Constitutional Constitutional: Reports system reviewed and no additional complaints, except as documented and Reports as per HPI ENT Ears, Nose, Mouth, and Throat: Reports system reviewed and no additional complaints, except as documented and Reports as per HPI Cardiovascular Cardiovascular: Reports system reviewed and no additional complaints, except as documented and Reports as per HPI Respiratory Respiratory: Reports system reviewed and no additional complaints, except as documented and Reports as per HPI Gastrointestinal Gastrointestingal: Reports system reviewed and no additional complaints, except as documented, as per HPI and diarrhea Physical Exam General General appearance: alert and in no apparent distress ENT ENT exam: Present mucous membranes moist Respiratory Respiratory exam: Present normal lung sounds bilaterally; Absent respiratory distress or wheezes Cardiovascular Cardiovascular exam: Present regular rate, normal rhythm and normal heart sounds Abdominal Exam Abdominal exam: Present soft and normal bowel sounds; Absent distention or tenderness Neurological Exam Neurological exam: Present alert, oriented X3 and normal gait Medical Decision Making Sawyer Inquiry Pt receiving controlled substance: No Sawyer was queried for this patient: No Vital Signs: 08/04/24 15:50 Temperature 99.6 F Temperature Source Oral Pulse Rate [Left Brachial] 94 H Respiratory Rate 17 Blood Pressure [Left Arm] 137/83 Blood Pressure Mean [Left Arm] 101 Blood Pressure Source [Left Arm] Automatic Cuff Blood Pressure Position [Left Arm] Sitting 02 Sat by Pulse Oximetry 98 Oxygen Delivery Method Room Air Medical Decision Narrative: mediacation discussed and dosed per pharmacy
[2024-08-04 16:20] VITALS: BP 137/83; PULSE 94; RESP 17; TEMP 37.6; O2SAT 98
== END 2024-08-04 16:23 | disposition home or self-care (01) ==
PROVIDERS: Emergency Provider Nurse Practitioner
DX: R19.7 Diarrhea, unspecified (principal); A04.0 Enteropathogenic Escherichia coli infection; A04.5 Campylobacter enteritis
CPT/HCPCS: 99212; 99214; G0463

== ENCOUNTER 2025-09-25 13:54 | Outpatient (CLI) | payer BC, SELFPAY ==
[2025-09-25 16:26] LABS: Coronavirus 19, PCR Not Detected (NotDetected); Influenza A, PCR Not Detected (NotDetected); Influenza B, PCR Not Detected (NotDetected)
== END 2025-09-25 23:59 ==
LOC: LAB.DROPOF 09-26 10:21
PROVIDERS: PCP Student in an Organized Health Care Education/Training Program; Visit Provider Student in an Organized Health Care Education/Training Program
DX: R50.9 Fever, unspecified (principal)
CPT/HCPCS: 87631